=== PATIENT | male | born 1960 | race Caucasian/White ===

== ENCOUNTER → 2017-06-06 | Day surgery (SDC) | payer OTHER ==
[~2017-06-06] MED LIST: LIDO/EPI 1% **for epidural** 30 ML SDV ONE
== END | disposition home or self-care (01) ==
LOC: FLAB 09:35
PROVIDERS: ATTEND Radiology Diagnostic Radiology
PROC: 065P3ZZ Destruction of Right Saphenous Vein, Percutaneous Approach (ICD-10-PCS; principal; 2017-06-06)
DX: I83.11 Varicose veins of right lower extremity with inflammation (principal); I83.12 Varicose veins of left lower extremity with inflammation
CPT/HCPCS: 36478; C1769

== ENCOUNTER 2017-06-27 07:27 | Day surgery (SDC) | payer OTHER ==
[2017-06-27] MEDS ORDERED: MIDAZOLAM 2 MG/2 ML VIAL ONE ×2 (07:41→11:05)
[2017-06-27] MEDS ORDERED: FLUMAZENIL 0.5 MG/5 ML MDV IVP ONE (07:41)
[2017-06-27] MEDS ORDERED: NALOXONE HCL 0.4 MG/ML INJ ONE (07:41)
[2017-06-27] MEDS ORDERED: fentaNYL 100 MCG/2 ML INJ ONE ×2 (07:42→11:06)
[2017-06-27] MEDS ORDERED: NS 1,000 ML IV ONE (07:58)
[2017-06-27] MEDS ORDERED: ALTEPLASE 2 MG VIAL IVP PRN (07:58)
[2017-06-27] MEDS ORDERED: PROTAMINE SULFATE 50 MG/5 ML VIAL IVP PRN (07:58)
[2017-06-27] MEDS ORDERED: FLUMAZENIL 0.5 MG/5 ML MDV IVP PRN (07:58)
[2017-06-27] MEDS ORDERED: ONDANSETRON 4 MG/2 ML VIAL IVP ONE (07:58)
[2017-06-27] MEDS ORDERED: NALOXONE HCL 0.4 MG/ML INJ IVP PRN (07:58)
[2017-06-27] MEDS ORDERED: ceFAZolin 2 GM/SWFI 2 GM/20 ML SYR IVP ONE (07:58)
[2017-06-27] MEDS ORDERED: MIDAZOLAM 2 MG/2 ML VIAL IVP PRN (07:58)
[2017-06-27] MEDS ORDERED: GLUCAGON HCL 1 MG VIAL IVP PRN (07:58)
[2017-06-27] MEDS ORDERED: MEPERIDINE 25 MG/ML SYR IVP PRN (07:58)
[2017-06-27] MEDS ORDERED: HEPARIN 10,000 UNIT/10 ML MDV (1,000 UNIT/ML) IVP PRN (07:58)
[2017-06-27] MEDS ORDERED: fentaNYL 100 MCG/2 ML INJ IVP PRN (07:58)
[2017-06-27] MEDS ORDERED: LIDO/EPI 1% **for epidural** 30 ML SDV ONE (08:09)
[2017-06-27 08:14] VITALS: BP 112/68; PULSE 54; RESP 10; TEMP 99.7; O2SAT 95
--- NOTE | 2017-06-27 08:53 | PDGENHP ---
History & Physical Chief Complaint: BILATERAL LEG VARICOSITIES History of Present Illness: S/P BILATERAL GSV ABLATION. RESIDUAL EXTENSIVE VARICOSITIES. STAGED TREATMENT APPROACH. Pertinent Past, Social, Family History: PFO. NO SCLEROTHERAPY. NO OTHER SIGNIFICANT MEDICAL ISSUES. Relevant Physical Exam: EXTENSIVE VARICOSITIES MAPPED OUT. Cardiorespiratory Assessment: RRR, CTA
--- NOTE | 2017-06-27 08:54 | PDPROPOC ---
Sedation Plan of Care ASA Classification: ASA 1 Planned drugs: fentanyl, midazolam Mallampati Score: Class 1 Mallampati Reference Image: Patient passed 3-3-2 rule?: Yes
[2017-06-27] MEDS ORDERED: HYDROCODONE/APAP 5/325 TAB PO PRN (12:03)
[2017-06-27] MEDS ORDERED: IBUPROFEN 200 MG TAB PO ONE (12:03)
[2017-06-27] MEDS ORDERED: ONDANSETRON DISINTEGRATING 4 MG TAB PO PRN (12:03)
--- NOTE | 2017-06-27 12:14 | PDRADPN ---
Radiology Procedure Note Date of Procedure: 06/27/17 Radiologist: Janny Richmond Anesthesia: IV Sedation Pre-op Diagnosis: bilateral varicosities Post-op Diagnosis: same Indication: removal of large varicosities Procedure: bilateral phlebectomy done Finding(s): see report Inf/Abcess present in the surg proc area at time of surgery?: No Complications: none
[2017-06-27] MEDS ORDERED: NS 1,000 ML IV SCH (12:15)
== END 2017-06-27 16:50 | disposition home or self-care (01) ==
LOC: FIMAGING 07:27
PROVIDERS: ATTEND Radiology Diagnostic Radiology
PROC: 06DQ3ZZ Extraction of Left Saphenous Vein, Percutaneous Approach (ICD-10-PCS; principal; 2017-06-27)
PROC: 06LQ3ZZ Occlusion of Left Saphenous Vein, Percutaneous Approach (ICD-10-PCS; principal; 2017-06-27)
PROC: 06DP3ZZ Extraction of Right Saphenous Vein, Percutaneous Approach (ICD-10-PCS; principal; 2017-06-27)
PROC: 06LP3ZZ Occlusion of Right Saphenous Vein, Percutaneous Approach (ICD-10-PCS; principal; 2017-06-27)
DX: I83.93 Asymptomatic varicose veins of bilateral lower extremities (principal)
CPT/HCPCS: J0690; J2250; J2310; J3010